=== PATIENT | male | born 1945 | race African-American/Black ===

== ENCOUNTER 2018-07-17 16:22 | Observation (INO) | payer OTHER ==
[2018-07-17] MEDS ORDERED: INFLUENZA VACCINE (for 3y+) 0.5 ML DOSE IMVAC ONE (19:00)
[2018-07-17 19:25] LABS: Absolute Lymphocytes (CBC) 1.6 K/uL (0.7-4.9); Absolute Monocytes 0.4 K/uL (0.1-1.3); Absolute Neutrophil 4.2 K/uL (1.8-8.0); Basophils % 0.5 % (0-1.3); Hematocrit 45.5 % (39.6-49.0); MPV 11.5 fL (7.6-11.3); Monocytes % 6.5 % (3.3-12.3); RBC Red Blood Cell Count 4.95 M/uL (4.33-5.43)
[2018-07-17 19:36] LABS: Urine Appearance CLEAR; Urine Bilirubin NEGATIVE (NEG); Urine Blood NEGATIVE (NEG); Urine Color YELLOW; Urine Glucose NEGATIVE (NEG); Urine Protein NEGATIVE (NEG); Urine Urobilinogen 0.2 mg/dL (0.2-1.0)
[2018-07-17 19:38] LABS: Urine Microscopic Reflex NO UMIC
[2018-07-17 19:47] LABS: Albumin 3.9 g/dL (3.4-5.0); Bilirubin Total 0.5 mg/dL (0.2-1.0); Potassium 4.5 mmol/L (3.5-5.1); Protein, Total 7.9 g/dL (6.4-8.2)
[2018-07-17 21:13] LABS: Blood Morphology Comment NOT SEEN (NOT SEEN); Platelet Estimate ADEQ; Platelets, Giant PRESENT; Urine White Blood Cell Casts OK
--- NOTE | 2018-07-17 21:54 | RAD REPORT ---
EXAM DESCRIPTION: CTAbdomen Pelvis W Contrast - 07/17/2018 9:46 pm CLINICAL HISTORY: Abdominal pain. abd pain COMPARISON: No comparisons TECHNIQUE: Biphasic CT imaging of the abdomen and pelvis was performed with 100 ml non-ionic IV cont rast. All CT scans are performed using dose optimization technique as appropriate and may include automated exposure control or mA/KV adjustment according to patient size. FINDINGS: Mild linear subsegmental atelectasis is present in both lung bases, greater on the right. The liver, spleen, pancreas, adrenal glands and kidneys are within normal limits. Small benign cortic al cysts involve the right kidney. No bowel obstruction, free air, free fluid or abscess. Appendectomy. Moderate stool is seen in the r ectosigmoid colon. Curvilinear radiodense objects are present in the stool in the rectosigmoid colon, presumably related to ingested material. No evidence of significant lymphadenopathy. Multilevel degenerative changes involving the lumbar spine present. IMPRESSION: No acute intra-abdominal or pelvic finding. Moderate fecal retention.
[2018-07-17] MEDS: NACHLORIDE 0.45% 1,000 ML IV SCH (22:10)
[2018-07-18] MEDS ORDERED: BISACODYL E.C. 5 MG TAB PO ONE (01:22)
[2018-07-18] MEDS: levETIRAcetam 500 MG TAB PO SCH ×2 (02:35→09:22)
[2018-07-18] MEDS: NACHLORIDE 0.45% 1,000 ML IV SCH ×2 (04:45→11:00)
--- NOTE | 2018-07-19 02:22 | HP ---
Date of Admission: 07/17/2018 Final Diagnoses: 1.Abdominal pain. 2.Seizure disorder. 3.History of brain surgery. 4.Left leg amputation. History: This patient was brought to the office because of abdominal pain. He was found to have ten derness in the right abdomen without any palpable mass. As the diagnosis was not clear, the patient was admitted for observation. There is no history of diarrhea, vomiting, fever, chills, or rigors. Past Medical History: Positive for seizure disorder, brain surgery, leg amputation related to accide nt. The patient is helped by friends and family members on account of his mental state. Personal History: Currently nonsmoker. Allergies: NO KNOWN ALLERGIES. Home Medicines: Keppra, Protonix. Review of Systems: No fever, chills, rigors. Physical Examination: General: Revealed a 72-year-old male with a dysarthria. Vital Signs: Normal. HEENT: Negative. Neck: Supple. JVD negative. Chest: Clear. Heart: Regular. Abdomen: Tender right abdomen. No palpable mass. Bowel sounds present. Extremities: No edema. Laboratory Data: White count normal. CAT scan, large amount of stools noted. Assessment: 1.Abdominal pain. 2.Seizure disorder. 3.Status post brain surgery. 4.Status post left leg amputation. Plan: As the patient did not have any evidence of acute findings, the patient was discharged to have outpatient followup. He may need GI workup to explain his pain. Meanwhile, he is advised to take l axative and see me in the office in 2-3 days. JUAN R/MACY Voice ID: [id number]
== END 2018-07-18 12:45 | disposition home or self-care (01) ==
LOC: 2ND 17:16
PROVIDERS: ADMIT Internal Medicine; ATTEND Internal Medicine
DX: R10.9 Unspecified abdominal pain (principal); G40.909 Epilepsy, unspecified, not intractable, without status epilepticus; Z89.612 Acquired absence of left leg above knee; R47.1 Dysarthria and anarthria
CPT/HCPCS: 85025; 36415; 81003; 80053; 74177; Q9967; G0379; G0378